=== PATIENT | male | born 1970 | race Caucasian/White ===

== ENCOUNTER 2025-05-12 11:12 | Emergency (ER) | payer OTHER, SELFPAY ==
[2025-05-12 11:12] VITALS: BMI 25.5
[2025-05-12 11:14] VITALS: BP 111/61
[2025-05-12 11:21] VITALS: BP 107/60
--- NOTE | 2025-05-12 11:33 | ED.GENMED ---
History of Present Illness
General
Chief Complaint: Allergic Reaction
Source: patient
Exam Limitations: none
Time Seen by Provider: 05/12/25 11:28
History of Present Illness
History of Present Illness:
54yoM with a history of seizures presenting with his for evaluation of an allergic reaction. Patient was mowing his lawn less than an hour ago when he was stung by multiple bees in his legs, arms, and left ear. He reports hives, skin itching,
diffuse redness, and feeling like his lips and tongue are swollen. He denies any dysphagia, shortness of breath, vomiting, diarrhea. He took 25mg PO Benadryl prior to arrival. He has no prior history of allergic reaction to bee stings.
Past History
Past History
ED Past Medical History: Other (Seizure disorder)
ED Past Surgical History: Orthopedic
Social History
Tobacco: Former smoker
Alcohol: Occasional
Drug: None
Personal:
Living: with family
Employment: Employed
Phy Exam
General Physical Exam
General Presentation: mild distress
General Skin: warm and dry
General Habitus: normal
General Mental: alert
ENT Exam
ENT Exam: normocephalic and other (Mild lip swelling. No swelling in tongue or posterior oropharynx. Airway patent. Normal phonation.)
Additional ENT: Localized swelling to L ear noted from bee sting
Cardiovascular Exam
Cardiovascular Exam: tachycardia
Pulmonary Exam
Pulmonary Exam: lungs clear, no respiratory distress, no rales, no crackles, no rhonchi and no wheezing
Neurological Exam
Neurological Exam: alert
[place] Coma Scale
Eye Opening: Spontaneous
Verbal Response: Oriented
Motor Response: Obeys Commands
GCS Total Score: 15
Skin Exam
Skin Exam: other (Diffuse erythema noted with scattered urticaria)
Psychiatric Exam
Psychiatric Exam: normal mood/affect
Course
Orders/Labs/Results
Orders:
Orders
05/12/25 11:32
Cardiac Monitoring- Treatment ONCE
0.9% Sodium Chloride 1000 ml [Nss] 1,000 ml IV BOLUS
Dexamethasone Sod Phosphate [Decadron] 10 mg IV NOW STA
Diphenhydramine [Benadryl] 25 mg IV NOW STA
EPINEPHrine PF [Adrenalin] 0.5 mg IM NOW STA
Famotidine [Pepcid] 20 mg IV NOW STA
Vital Signs
Initial and Last Documented VS:
Initial Vital Signs
Temp Pulse Resp BP Pulse Ox
98.5 F 134 18 111/61 98
05/12/25 11:14 05/12/25 11:14 05/12/25 11:14 05/12/25 11:14 05/12/25 11:14
Last Documented Vital Signs
Temp Pulse Resp BP Pulse Ox
98 F 74 16 139/95 99
05/12/25 14:55 05/12/25 14:55 05/12/25 14:55 05/12/25 14:55 05/12/25 14:55
MDM/Problems Addressed
Differential Diagnosis Includes:
54yoM presenting with an allergic reaction after being stuck by multiple bees. C/o itching, redness, lip swelling. He is tachycardic with otherwise stable vitals. Diffuse skin erythema noted on exam with scattered urticaria. Mild lip swelling.
Airway is intact and lungs CTA. Differential diagnosis includes: anaphylaxis, allergic reaction
Initial ED plan: IV Benadryl, Decadron, Pepcid, and IM epinephrine ordered. Will place on cardiac cath technician.
*Pulse Oximetry
SaO2: 98
Oxygen Mode of Delivery: Room air
Patient hypoxic: no (98%)
*Critical Care Note
Total Time (30-74mins, 75-104mins- exclusive of procedures): 35
Update Note
Update Note:
Patient with immediate improvement in symptoms after receiving epinephrine. He was monitored for an additional 3+ hours and remains asymptomatic on multiple reassessments. Patient stable for discharge. Prescription provided for EpiPen and
supportive care discussed. ED return precautions reviewed.
ED Attending Note
-
Portions of this chart may have been created with voice recognition software.� Occasional wrong word or��sound alike� substitutions may have occurred due to the inherent limitations of voice recognition software.
Discharge Plan
Departure
Patient Disposition: Home (Routine Discharge)
Date of Disposition: 05/12/25
Time of Disposition: 14:47
Patient with high blood pressure during this ER visit?: No
Discharge Problem:
Allergic reaction to bee sting
Instructions: Anaphylaxis - Discharge instructions
Prescriptions:
New
epinephrine [EpiPen 2-Warren] 0.3 mg/0.3 mL auto-injector
0.3 ml IM ONCE PRN (Reason: anaphylaxis) Qty: 2 0RF
No Action
carbamazepine 300 MG capsule, ER multiphase 12 hr
300 mg PO BID
oxycodone-acetaminophen 5 MG/325 MG tablet
1 tab PO Q4HPRN PRN (Reason: moderate to severe pain) Qty: 6 0RF
Referrals:
Trino Guerrero DO [Family Provider, Family Practice]
Activity Restrictions/Additional Instructions:
Take 1-2 tablets of Benadryl every 6 hours as needed for itching/hives. Administer EpiPen with any trouble breathing or throat closing.
Please follow-up with your family doctor. Return to the ER with any worsening symptoms or if you have to use the EpiPen.
Interventions
Interventions:
*Risk Screen - Suicide Last Done: 05/12/25 11:14
*General Assessment Last Done: 05/12/25 11:14
*Neglect/Abuse Screening Last Done: 05/12/25 11:14
*ED- Fall Risk Assessment Last Done: 05/12/25 11:14
*ED COVID-19 Vaccine History Last Done: 05/12/25 11:14
*Nursing Disposition Last Done: 05/12/25 14:55
ED- Cardiac Assessment Last Done: 05/12/25 11:38
ED- Pulmonary Assessment Last Done: 05/12/25 11:38
ED-Skin Assessment Last Done: 05/12/25 11:38
Discharge Date and Time
Discharge Date/Time: 05/12/25 15:06
Print Language: SAMI
[2025-05-12 11:34] VITALS: BP 107/60
[2025-05-12] MEDS: BENADRYL 25 MG IV (11:47)
[2025-05-12] MEDS: PEPCID 20 MG IV (11:47)
[2025-05-12] MEDS: NSS 1000 IV (11:47)
[2025-05-12] MEDS: ADRENALIN 0.5 MG IM (11:48)
[2025-05-12] MEDS: DECADRON 10 MG IV (11:48)
[2025-05-12 12:00] VITALS: BP 147/111
[2025-05-12 13:00] VITALS: BP 139/95
[2025-05-12 14:55] VITALS: BP 139/95
== END 2025-05-12 15:06 | disposition home or self-care (01) ==
LOC: EMR 11:12
PROVIDERS: EMERGENCY PHYSICIAN Emergency Medicine; FAMILY PHYSICIAN Family Medicine
DX: T63.441A Toxic effect of venom of bees, accidental (unintentional), initial encounter (principal); Y92.9 Unspecified place or not applicable; G40.909 Epilepsy, unspecified, not intractable, without status epilepticus; Z87.891 Personal history of nicotine dependence; Z91.030 Bee allergy status
CPT/HCPCS: 99282; 96374; 96375; 96372; 96361